=== PATIENT | female | born 1985 | race Caucasian/White ===

== ENCOUNTER 2019-11-26 11:06 | Day surgery (SDC) | payer BC, SELFPAY ==
[2019-11-26] VITALS (17 sets, daily range): BP systolic 98–122; BP diastolic 56–80; PULSE 74–104; RESP 18–26; TEMP 36.1–36.6; O2SAT 92–100; BMI 27.4
[2019-11-26] MEDS: sodium chloride 0.9% 1,000 ML 30 ML IV (11:00)
--- NOTE | 2019-11-26 12:13 | ANES.PREANES ---
Pre-Anesthetic Assessment Pre-Anesthetic Assessment: Height/Weight: Height 1.65 m Weight 74.843 kg Proposed Procedure: Operation Date: 11/26/19 12:30 Proposed Procedures p Laparoscopic Cholecystectomy poss open(Not Applicable) - Quique Villar MD Last intake: Intake Last Liquid Date 11/25/19 Last Liquid Time 17:00 Last Solid Date 11/25/19 Last Solid Time 16:00 Social: Social History: No alcohol and No tobacco Exam: Pre-Anes Outpt Exam: alert, oriented x 3, clear to auscultation bilaterally and regular rate & rhythm Airway: Submandibular: WNL Cervical ROM: WNL MP: 1 Dentition: Full History/ROS: No significant history except as noted Neuropsych: Neuropsych: Anxiety Anesthetic Plan: ASA status: I Anesthesia: Anesthesia Evaluation and General Risk of > 500 ml blood loss (7ml/kg in children): No PFSH Anesthesia PFSH: Medical History (Updated 11/26/19 @ 10:18 by Quique Villar MD) Anxiety (Acute) 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
[2019-11-26 12:16] LABS: OR HCG Qualitative Urine Negative (Negative)
[2019-11-26] MEDS: fentaNYL 50 mcg/mL INJ 2mL IVP ×4 (12:48→14:10)
[2019-11-26] MEDS: ondansetron 2 mg/ML SDV 2 mL 4 MG IVP (14:15)
[2019-11-26] MEDS: morphine 4 mg/mL SDV 1 mL 2 MG IVP ×2 (14:25→14:30)
[2019-11-26] MEDS: ketorolac 30 mg/mL INJ IVP (14:40)
[2019-11-26] MEDS: dexamethasone 10 mg/mL INJ IVP (14:42)
--- NOTE | 2019-11-26 15:03 | P.OP_ITS ---
Operative Report Post-Operative Note: Date of procedure: 11/26/19 Preop Diagnosis: Symptomatic cholelithiasis Post-op diagnosis: same Procedure Done: Laparoscopic cholecystectomy. Specimens removed/disposition: Gallbladder Surgeon: Quique Villar Anesthesia: general Estimated blood loss (mL): 10 Condition: stable Disposition: PACU Operative Report: Procedure: The patient was taken to the operating room and was intubated under general anesthesia. After the antibiotic had been administered, the abdomen was prepped and draped in a sterile manner. Using a #15 blade, a 1 centimeter infraumbilical curvilinear incision was made and using an open Elissa technique the peritoneal cavity was entered. A 10 millimeter port was placed and 15 millimeters of pneumoperitoneum was created. A 10 millimeter, 30 degrees scope was then introduced. Three 5 millimeter ports were placed in the epigastric, midclavicular and the anterior axillary line two fingerbreadths below the costal margin on the right side under the direct visualization. Ratcheted forceps were introduced into the lateral most port and was used to retract the fundus of the gallbladder cephalad and using forceps the infundibulum of the gallbladder was retracted laterally. Using L-hook cautery the peritoneum overlying the Calot's triangle was opened medially and laterally until the cystic duct and the cystic artery were skeletonized. Dissection was carried along the body of the gallbladder and after ensuring critical view of safety, 4 clips applied on the cystic duct and 3 clips applied on the cystic artery and cut leaving, 3 clips on the remaining portion of the duct and 2 clips on the remaining portion of the artery. The rest of the gallbladder was dissected off the liver using L-hook cautery. There was no bleeding or bile leaking noted from the gallbladder fossa and the clips appeared to be in place. An EndoCatch bag was introduced to remove the gallbladder. All the ports were removed under direct visualization and there was no bleeding noted from the port sites. The fascia of the umbilicus was closed using [id number] 0 Vicryl sutures and the subcutaneous tissue was approximated using 3-0 Vicryl sutures. The skin at all four ports were closed using 4-0 Monocryl and Dermabond. A total of 10 millimeters of 0.5% Marcaine was infiltrated around the port sites. The patient was stable throughout the procedure. Coding Level of Care Code Acute Ultrasound Coordinator for Chg Fwd
[2019-11-26] MEDS: morphine 4 mg/mL SDV 1 mL IVP (15:47)
--- NOTE | 2019-11-26 16:28 | SUR.PHASEI ---
PT DC PAIN 10/10, VS WITHIN NORMAL RANGE, DR. NICOLE EXPLAINED TO PT ABDOMINAL PAIN FROM CO2 FROM PROCEDURE, WILL ABSORB AND GET BETTER
[2019-11-26] MEDS: oxyCODONE-APAP 5-325 mg Tablet 1 TAB PO (16:50)
--- NOTE | 2019-12-09 11:59 | PM.HPUD ---
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
== END 2019-11-26 17:00 | disposition home or self-care (01) ==
PROVIDERS: Family Provider Nurse Practitioner; PCP Nurse Practitioner; Visit Provider Surgery
PROC: 0FT44ZZ Resection of Gallbladder, Percutaneous Endoscopic Approach (ICD-10-PCS; CPT 47562; principal; 2019-11-26 12:30)
DX: K80.10 Calculus of gallbladder with chronic cholecystitis without obstruction (principal)
CPT/HCPCS: 47562; 12345; 84703; 88304; 96365; 99221; J0131; J0690; J1100; J1885; J2001; J2270; J2405; J2704; J2710; J3010; J3490; J7030

== ENCOUNTER 2021-05-23 10:05 | Outpatient (CLI) | payer BC, SELFPAY ==
--- NOTE | 2021-05-23 10:12 | MM_ITS ---
WS: [id number] DIAGNOSTIC BILATERAL DIGITAL MAMMOGRAM WITH CAD RIGHT breast ultrasound, limited HISTORY: RT BREAST DENSITY 4-7 OCLOCK 1CM BELOW AREOLAR BORDER COMPARISON: 01/26/2016 TECHNIQUE: Bilateral craniocaudad, mediolateral oblique, and mediolateral views are submitted. Spot c ompression RIGHT MLO. Computer aided detection utilized. Breast composition: The breasts are heterogeneously dense, which may obscure small masses. Triangular markers are placed at 4 and 7:00 over the RIGHT breast. No underlying abnormality is detected by alex mography. Normal appearance of the breasts. No architectural distortion or mass or calcification. RIGHT breast ultrasound, limited. Ultrasound directed to the palpable areas from 4-7 o'clock. No mass or distortion or shadowing identi fied. MM/[id number] IMPRESSION: BI-RADS: 1-Negative FOLLOW UP: 1 Year Follow-up
== END 2021-05-23 10:06 | disposition home or self-care (01) ==
LOC: RADSHAW 10:09
PROVIDERS: Family Provider Nurse Practitioner; PCP Nurse Practitioner Family; Visit Provider Obstetrics & Gynecology
DX: N63.15 Unspecified lump in the right breast, overlapping quadrants (principal)
CPT/HCPCS: 76642; 77066